=== PATIENT | male | born 1960 | race African-American/Black ===

== ENCOUNTER 2019-12-20 10:42 | Inpatient (IN) | payer OTHER ==
[~2019-12-20] VITALS: Ht 180.3 cm; Wt 111.1 kg
[2019-12-20] MEDS ORDERED: ENOXAPARIN 100MG/ML SYR SUBCUT ONE (12:45)
[2019-12-20 13:47] LABS: EOSINOPHILS % 3.6 % (0.0-5.0); HEMATOCRIT. 38.8 % (42.0-52.0); HEMOGLOBIN. 12.4 g/dL (14.0-18.0); LYMPHOCYTES % 25.4 % (20.0-50.0); MEAN CORPUSCULAR HEMOGLOBIN 23.7 pg (28.0-32.0); MEAN CORPUSCULAR VOLUME 74.1 fL (80.0-94.0); MEAN PLATELET VOLUME 8.9 fl (7.4-10.4); MONOCYTES % 6.2 % (2.0-8.0); NEUTROPHILS % 63.8 % (40.0-76.0); PLATELET 157 x1000/uL (130-400); RED BLOOD CELL COUNT 5.23 mill/uL (4.7-6.1); RED CELL DISTRIBUTION WIDTH 18.5 % (11.6-14.6)
[2019-12-20 13:50] LABS: CHLORIDE 110 mEq/L (98-107)
[2019-12-20 14:08] LABS: PROTHROMBIN TIME 11.2 sec (9.6-11.0)
[2019-12-20] MEDS ORDERED: ONDANSETRON HCL 4MG/2ML INJ IV PRN (18:30)
[2019-12-20] MEDS ORDERED: LORAZEPAM 2MG/ML CPJ IV PRN (18:30)
[2019-12-20] MEDS ORDERED: CLONIDINE 0.1MG TABLET PO PRN (18:30)
[2019-12-20] MEDS ORDERED: MORPHINE SULFATE 2 MG/ML CPJ (NOT FOR IM USE) IV PRN (18:30)
[2019-12-20] MEDS ORDERED: DIPHENHYDRAMINE 50MG/ML VIAL IV PRN (18:30)
[2019-12-20] MEDS ORDERED: HYDRALAZINE 20MG/ML VIAL IV PRN (18:30)
[2019-12-20] MEDS ORDERED: NA PHOS,M-B/NA PHOS,DI-BA ENEMA 118ML PR PRN (18:30)
[2019-12-20] MEDS ORDERED: HYDROCODONE/ACETAMINOPHEN 10/325MG TABLET PO PRN (18:30)
[2019-12-20] MEDS ORDERED: IPRATROPIUM/ALBUTEROL 0.5-3(2.5)MG/3ML NEB NEB PRN (18:30)
[2019-12-20] MEDS ORDERED: GUAIFENESIN 200MG/10ML SUGAR FREE UDC PO PRN (18:30)
[2019-12-20] MEDS ORDERED: DOCUSATE SODIUM 100MG CAPSULE PO PRN (18:30)
[2019-12-20] MEDS ORDERED: ACETAMINOPHEN 325MG TABLET PO PRN (18:30)
[2019-12-20] MEDS ORDERED: MAGNESIUM/ALUMINUM HYDROXIDE/SIMETHICONE 30ML UDC PO PRN (18:30)
[2019-12-20] MEDS ORDERED: DEXTROSE 50% WATER 50ML SYRINGE IV PRN (18:30)
[2019-12-20] MEDS ORDERED: BLOOD SUGAR DIAGNOSTIC STRIP TEST NR (21:15)
[2019-12-21 05:54] LABS: BASOPHILS % 1.3 % (0.0-2.0); EOSINOPHILS % 4.5 % (0.0-5.0); HEMATOCRIT. 37.2 % (42.0-52.0); LYMPHOCYTES % 24.1 % (20.0-50.0); MEAN CORPUSCULAR HEMOGLOBIN 23.8 pg (28.0-32.0); MEAN CORPUSCULAR VOLUME 73.9 fL (80.0-94.0); MEAN PLATELET VOLUME 8.7 fl (7.4-10.4); NEUTROPHILS % 62.1 % (40.0-76.0); PLATELET 159 x1000/uL (130-400); RED BLOOD CELL COUNT 5.03 mill/uL (4.7-6.1); RED CELL DISTRIBUTION WIDTH 18.5 % (11.6-14.6)
[2019-12-21] MEDS ORDERED: ENOXAPARIN 120MG/0.8ML SYR SUBCUT NR (06:00)
[2019-12-21 06:02] LABS: CHLORIDE 108 mEq/L (98-107)
[2019-12-21] MEDS ORDERED: HYDRALAZINE 10 MG in SODIUM CHLORIDE 0.9% 49.5 ML IV PRN (09:00)
[2019-12-21 09:20] VITALS: BP 146/86
[2019-12-21 09:25] VITALS: BP 159/91
[2019-12-21 12:00] VITALS: BP 159/86
[2019-12-21] MEDS: BLOOD SUGAR DIAGNOSTIC STRIP TEST SCH ×3 (12:17→21:39)
[2019-12-21] MEDS: INSULIN LISPRO 100 UNITS/ML SUBCUT SCH ×3 (12:30→21:50)
[2019-12-21] MEDS: SODIUM CHLORIDE 0.9% INJ 3ML FLUSH IVF SCH ×2 (14:00→21:48)
[2019-12-21 16:00] VITALS: BP 151/83
[2019-12-21] MEDS: ENOXAPARIN 120MG/0.8ML SYR SUBCUT SCH (17:46)
[2019-12-21 20:00] VITALS: BP 164/85
[2019-12-21] MEDS: AMLODIPINE 5MG TABLET PO SCH (21:38)
[2019-12-22 00:34] VITALS: BP 155/78
[2019-12-22 04:00] VITALS: BP 154/97
[2019-12-22] MEDS: SODIUM CHLORIDE 0.9% INJ 3ML FLUSH IVF SCH (05:09)
[2019-12-22] MEDS: ENOXAPARIN 120MG/0.8ML SYR SUBCUT SCH (05:09)
[2019-12-22] MEDS: INSULIN LISPRO 100 UNITS/ML SUBCUT SCH (06:14)
[2019-12-22] MEDS: BLOOD SUGAR DIAGNOSTIC STRIP TEST SCH (06:14)
[2019-12-22 06:54] LABS: BASOPHILS % 1.1 % (0.0-2.0); EOSINOPHILS % 4.4 % (0.0-5.0); HEMATOCRIT. 37.3 % (42.0-52.0); LYMPHOCYTES % 22.7 % (20.0-50.0); MEAN CORPUSCULAR HEMOGLOBIN 23.4 pg (28.0-32.0); MEAN PLATELET VOLUME 8.9 fl (7.4-10.4); MONOCYTES % 8.8 % (2.0-8.0); PLATELET 170 x1000/uL (130-400); RED BLOOD CELL COUNT 5.12 mill/uL (4.7-6.1); RED CELL DISTRIBUTION WIDTH 18.6 % (11.6-14.6)
[2019-12-22 07:19] LABS: CHLORIDE 108 mEq/L (98-107)
[2019-12-22 08:00] VITALS: BP 136/81
[2019-12-22] MEDS ORDERED: LOSARTAN POTASSIUM 25 MG TABLET PO SCH (09:00)
[2019-12-22] MEDS: AMLODIPINE 5MG TABLET PO SCH (09:46)
== END 2019-12-22 12:05 | disposition home or self-care (01) | DRG 197 ==
LOC: ER 10:42 → EDBEDREQ 14:31 → ENRESERV 12-21 07:28 → 6EST 12-21 08:45
PROVIDERS: ADMIT Internal Medicine; ATTEND Internal Medicine
DX: I82.431 Acute embolism and thrombosis of right popliteal vein (principal); I82.411 Acute embolism and thrombosis of right femoral vein; I11.0 Hypertensive heart disease with heart failure; I27.21 Secondary pulmonary arterial hypertension; I50.9 Heart failure, unspecified; E11.9 Type 2 diabetes mellitus without complications; E78.00 Pure hypercholesterolemia, unspecified; E78.5 Hyperlipidemia, unspecified; I34.0 Nonrheumatic mitral (valve) insufficiency; Z82.49 Family history of ischemic heart disease and other diseases of the circulatory system; Z87.891 Personal history of nicotine dependence; I69.354 Hemiplegia and hemiparesis following cerebral infarction affecting left non-dominant side; Z68.34 Body mass index [BMI] 34.0-34.9, adult
CPT/HCPCS: 36415; 71045; 80048; 80053; 82962; 83735; 85025; 93005; 93306; 93970; 99285; J1650; J1815

== ENCOUNTER 2020-12-19 15:17 | Inpatient (IN) | payer MEDICAID, OTHER ==
[~2020-12-19] VITALS: Ht 180.3 cm; Wt 117.9 kg
[2020-12-19 16:27] LABS: BASOPHILS % 1.2 % (0.0-2.0); EOSINOPHILS % 2.4 % (0.0-5.0); HEMATOCRIT. 39.5 % (42.0-52.0); HEMOGLOBIN. 12.4 g/dL (14.0-18.0); LYMPHOCYTES % 19.5 % (20.0-50.0); MEAN CORPUSCULAR HEMOGLOBIN 24.1 pg (28.0-32.0); MEAN CORPUSCULAR VOLUME 76.9 fL (80.0-94.0); MEAN PLATELET VOLUME 8.8 fl (7.4-10.4); NEUTROPHILS % 70.9 % (40.0-76.0); PLATELET 200 x1000/uL (130-400); RED BLOOD CELL COUNT 5.13 mill/uL (4.7-6.1); RED CELL DISTRIBUTION WIDTH 17.6 % (11.6-14.6)
[2020-12-19] MEDS ORDERED: RIVAROXABAN 15 MG TABLET PO SCH (17:00)
[2020-12-19 17:25] LABS: CHLORIDE 111 mEq/L (98-107)
[2020-12-19] MEDS ORDERED: INSULIN LISPRO 100 UNITS/ML SUBCUT ONE (18:00)
[2020-12-19] MEDS ORDERED: CALCIUM GLUCONATE 100MG/ML 10ML VIAL IV ONE (18:00)
[2020-12-19] MEDS ORDERED: FUROSEMIDE 40MG/4ML VIAL IVP ONE (18:00)
[2020-12-19] MEDS ORDERED: DEXTROSE 50% WATER 50ML SYRINGE IV ONE (18:00)
[2020-12-19 21:00] VITALS: BP 121/90
[2020-12-19] MEDS ORDERED: SACUBITRIL/VALSARTAN 24/26 TAB PO SCH (21:00)
[2020-12-19 21:03] VITALS: BP 121/90
[2020-12-19] MEDS: CARVEDILOL 3.125 MG TABLET PO SCH (21:50)
[2020-12-20] VITALS: BP 139/91
[2020-12-20] MEDS: SACUBITRIL/VALSARTAN 24/26 TAB PO SCH ×3 (00:10→20:26)
[2020-12-20] MEDS ORDERED: LORAZEPAM 0.5MG TABLET PO PRN (00:30)
[2020-12-20] MEDS ORDERED: CLONIDINE 0.1MG TABLET PO PRN (00:30)
[2020-12-20 04:00] VITALS: BP 143/100
[2020-12-20] MEDS ORDERED: HEPARIN 5000 UNITS/ML VIAL SUBCUT SCH (06:00)
[2020-12-20 07:21] LABS: BASOPHILS % 0.6 % (0.0-2.0); EOSINOPHILS % 0.4 % (0.0-5.0); HEMATOCRIT. 34.3 % (42.0-52.0); LYMPHOCYTES % 9.3 % (20.0-50.0); MEAN CORPUSCULAR HEMOGLOBIN 24.4 pg (28.0-32.0); MEAN CORPUSCULAR VOLUME 75.9 fL (80.0-94.0); MEAN PLATELET VOLUME 8.9 fl (7.4-10.4); MONOCYTES % 5.8 % (2.0-8.0); NEUTROPHILS % 83.9 % (40.0-76.0); PLATELET 182 x1000/uL (130-400); RED BLOOD CELL COUNT 4.52 mill/uL (4.7-6.1); RED CELL DISTRIBUTION WIDTH 17.3 % (11.6-14.6)
[2020-12-20 07:28] LABS: *AMPHETAMINES SCREEN URINE NEGATIVE (NEGATIVE); *BARBITURATES SCREEN URINE NEGATIVE (NEGATIVE); *BENZODIAZEPINES SCREEN URINE NEGATIVE (NEGATIVE); *COCAINE SCREEN URINE NEGATIVE (NEGATIVE)
[2020-12-20 07:29] LABS: CANNABINOID URINE SCREEN NEGATIVE (NEGATIVE); METHADONE URINE SCREEN NEGATIVE (NEGATIVE); OPIATES URINE SCREEN NEGATIVE (NEGATIVE); PHENCYCLIDINE URINE SCREEN NEGATIVE (NEGATIVE)
[2020-12-20 08:00] VITALS: BP 142/88
[2020-12-20 08:33] LABS: CHLORIDE 106 mEq/L (98-107)
[2020-12-20 08:48] LABS: CREATINE KINASE 142 IU/L (39-308)
[2020-12-20 08:52] LABS: CREATINE KINASE MB FRACTION 1.3 ng/mL (0.5-3.6)
[2020-12-20] MEDS ORDERED: FUROSEMIDE 40MG/4ML VIAL IVP SCH (09:00)
[2020-12-20] MEDS: CARVEDILOL 3.125 MG TABLET PO SCH (09:26)
[2020-12-20 12:00] VITALS: BP 143/92
[2020-12-20] MEDS: FUROSEMIDE 40MG/4ML VIAL IVP SCH ×2 (13:18→16:25)
[2020-12-20 16:00] VITALS: BP 139/100
[2020-12-20 16:10] LABS: CREATINE KINASE MB FRACTION 1.5 ng/mL (0.5-3.6)
[2020-12-20] MEDS: RIVAROXABAN 20 MG TABLET PO SCH (16:25)
[2020-12-20] MEDS ORDERED: RIVAROXABAN 15 MG TABLET PO SCH (17:00)
[2020-12-20 20:00] VITALS: BP 132/85
[2020-12-20] MEDS: CARVEDILOL 6.25 MG TABLET PO SCH (20:26)
[2020-12-21] VITALS: BP 109/82
[2020-12-21 04:00] VITALS: BP 107/79
[2020-12-21 07:16] LABS: BASOPHILS % 0.9 % (0.0-2.0); EOSINOPHILS % 2.7 % (0.0-5.0); HEMATOCRIT. 34.7 % (42.0-52.0); HEMOGLOBIN. 11.3 g/dL (14.0-18.0); LYMPHOCYTES % 14.9 % (20.0-50.0); MEAN CORPUSCULAR HEMOGLOBIN 24.5 pg (28.0-32.0); MEAN CORPUSCULAR VOLUME 75.3 fL (80.0-94.0); MONOCYTES % 10.2 % (2.0-8.0); NEUTROPHILS % 71.3 % (40.0-76.0); PLATELET 176 x1000/uL (130-400); RED CELL DISTRIBUTION WIDTH 17.7 % (11.6-14.6)
[2020-12-21 07:24] LABS: CHLORIDE 107 mEq/L (98-107)
[2020-12-21 08:00] VITALS: BP 134/91
[2020-12-21] MEDS: FUROSEMIDE 40MG/4ML VIAL IVP SCH ×3 (09:10→17:11)
[2020-12-21] MEDS: SACUBITRIL/VALSARTAN 24/26 TAB PO SCH ×2 (09:11→20:28)
[2020-12-21] MEDS: CARVEDILOL 6.25 MG TABLET PO SCH ×2 (09:11→20:28)
[2020-12-21 12:00] VITALS: BP 138/80
[2020-12-21] MEDS: DOCUSATE SODIUM SUGAR FREE 100MG/10ML UDC NG SCH (12:43)
[2020-12-21] MEDS: DILTIAZEM HCL 30MG TABLET PO SCH ×2 (12:44→17:13)
[2020-12-21 16:00] VITALS: BP 111/73
[2020-12-21] MEDS: RIVAROXABAN 20 MG TABLET PO SCH (17:12)
[2020-12-21 20:12] VITALS: BP 101/63
[2020-12-22 00:17] VITALS: BP 100/67
[2020-12-22 04:31] VITALS: BP 110/72
[2020-12-22 06:04] VITALS: BP 138/91
[2020-12-22] MEDS: DILTIAZEM HCL 30MG TABLET PO SCH ×2 (06:04)
[2020-12-22 08:00] VITALS: BP 111/85
[2020-12-22 08:08] LABS: EOSINOPHILS % 4.3 % (0.0-5.0); HEMATOCRIT. 36.7 % (42.0-52.0); HEMOGLOBIN. 11.8 g/dL (14.0-18.0); LYMPHOCYTES % 20.6 % (20.0-50.0); MEAN CORPUSCULAR HEMOGLOBIN 24.4 pg (28.0-32.0); MEAN CORPUSCULAR VOLUME 76.1 fL (80.0-94.0); MEAN PLATELET VOLUME 8.7 fl (7.4-10.4); MONOCYTES % 12.4 % (2.0-8.0); NEUTROPHILS % 61.7 % (40.0-76.0); PLATELET 182 x1000/uL (130-400); RED BLOOD CELL COUNT 4.82 mill/uL (4.7-6.1); RED CELL DISTRIBUTION WIDTH 17.6 % (11.6-14.6)
[2020-12-22] MEDS: DOCUSATE SODIUM SUGAR FREE 100MG/10ML UDC NG SCH (08:16)
[2020-12-22] MEDS: CARVEDILOL 6.25 MG TABLET PO SCH (08:16)
[2020-12-22] MEDS: FUROSEMIDE 40MG/4ML VIAL IVP SCH (08:16)
[2020-12-22] MEDS: SACUBITRIL/VALSARTAN 24/26 TAB PO SCH (08:16)
[2020-12-22 08:28] LABS: CHLORIDE 105 mEq/L (98-107)
[2020-12-22] MEDS ORDERED: RIVA20TA PO (10:47)
[2020-12-22] MEDS ORDERED: DILT240C91 MT (10:47)
[2020-12-22] MEDS ORDERED: FURO40TA5 MT (10:47)
[2020-12-22] MEDS ORDERED: COR6 PO (10:47)
[2020-12-22 11:14] VITALS: BP 128/88
[2020-12-22] MEDS ORDERED: DILTIAZEM HCL 60MG TABLET PO SCH (12:00)
== END 2020-12-22 16:25 | disposition home or self-care (01) | DRG 194 ==
LOC: ER 15:17 → 6WST 19:22 → ENRESERV 20:27
PROVIDERS: ADMIT Internal Medicine; ATTEND Internal Medicine
DX: I11.0 Hypertensive heart disease with heart failure (principal); I50.23 Acute on chronic systolic (congestive) heart failure; I42.9 Cardiomyopathy, unspecified; E11.9 Type 2 diabetes mellitus without complications; E87.5 Hyperkalemia; I48.92 Unspecified atrial flutter; E78.00 Pure hypercholesterolemia, unspecified; E78.5 Hyperlipidemia, unspecified; I82.531 Chronic embolism and thrombosis of right popliteal vein; I82.511 Chronic embolism and thrombosis of right femoral vein; G47.33 Obstructive sleep apnea (adult) (pediatric); I69.398 Other sequelae of cerebral infarction; Z91.19 Patient's noncompliance with other medical treatment and regimen; Z82.49 Family history of ischemic heart disease and other diseases of the circulatory system
CPT/HCPCS: 36415; 71045; 80048; 80053; 80061; 80305; 82550; 82553; 83735; 83880; 84443; 84484; 85025; 93005; 93306; 96374; 99285; J0610; J1815; J1940

== ENCOUNTER 2022-11-04 09:43 | Inpatient (IN) | payer MEDICAID, OTHER ==
[~2022-11-04] VITALS: Ht 180.3 cm; Wt 120.2 kg
[~2022-11-04 09:43] MED LIST: COR6 PO; DILT240C91 MT; FURO40TA5 MT; RIVA20TA PO
[2022-11-04] MEDS ORDERED: FUROSEMIDE 40MG/4ML VIAL IVP ONE (11:30)
[2022-11-04] MEDS ORDERED: ENALAPRIL 2.5MG/2ML VIAL 2ML IV ONE (11:30)
[2022-11-04] MEDS ORDERED: ENALAPRIL 1.25MG/ML VIAL 1ML IV NR (12:00)
[2022-11-04 12:19] LABS: CHLORIDE 107 mEq/L (98-107)
[2022-11-04 12:36] LABS: BASOPHILS % 1.1 % (0.0-2.0); EOSINOPHILS % 2.7 % (0.0-5.0); HEMATOCRIT. 37.8 % (42.0-52.0); LYMPHOCYTES % 18.2 % (20.0-50.0); MEAN CORPUSCULAR HEMOGLOBIN 23.5 pg (28.0-32.0); MEAN CORPUSCULAR VOLUME 73.9 fL (80.0-94.0); MEAN PLATELET VOLUME 8.5 fl (7.4-10.4); MONOCYTES % 5.4 % (2.0-8.0); NEUTROPHILS % 72.6 % (40.0-76.0); PLATELET 229 x1000/uL (130-400); RED BLOOD CELL COUNT 5.11 mill/uL (4.7-6.1); RED CELL DISTRIBUTION WIDTH 17.7 % (11.6-14.6)
[2022-11-04] MEDS ORDERED: NON FORMULARY PATIENT HOME MED XX SCH (13:15)
[2022-11-04] MEDS: FUROSEMIDE 40MG/4ML VIAL IVP SCH ×2 (13:38→16:40)
[2022-11-04 13:58] LABS: INR 1.1; PROTHROMBIN TIME 11.9 sec (9.6-11.0)
[2022-11-04] MEDS: AMIODARONE HCL 200 MG TABLET PO SCH ×2 (14:17→21:26)
[2022-11-04] MEDS ORDERED: ONDANSETRON HCL 4MG/2ML INJ IV PRN (16:30)
[2022-11-04] MEDS ORDERED: DEXTROSE 50% WATER 50ML SYRINGE IV PRN (16:30)
[2022-11-04] MEDS ORDERED: ACETAMINOPHEN 325MG TABLET PO PRN (16:30)
[2022-11-04] MEDS: ENOXAPARIN 120MG/0.8ML SYR SUBCUT SCH (16:34)
[2022-11-04] MEDS: SACUBITRIL/VALSARTAN 49MG/51MG TABLET PO SCH (16:34)
[2022-11-04] MEDS: BLOOD SUGAR DIAGNOSTIC STRIP TEST SCH ×2 (16:40→21:16)
[2022-11-04] MEDS: DILTIAZEM HCL 30MG TABLET PO SCH ×2 (18:00→23:55)
[2022-11-04] MEDS: INSULIN LISPRO 100 UNITS/ML SUBCUT SCH ×2 (18:17→21:00)
[2022-11-04 20:00] VITALS: BP 97/70
[2022-11-04] MEDS: CARVEDILOL 3.125 MG TABLET PO SCH (21:26)
[2022-11-04 21:41] VITALS: BP 97/70
[2022-11-05] VITALS: BP 102/63
[2022-11-05 04:00] VITALS: BP 99/70
[2022-11-05] MEDS: FUROSEMIDE 40MG/4ML VIAL IVP SCH ×2 (05:28→17:37)
[2022-11-05] MEDS: ENOXAPARIN 120MG/0.8ML SYR SUBCUT SCH ×2 (05:28→17:37)
[2022-11-05] MEDS: DILTIAZEM HCL 30MG TABLET PO SCH ×4 (05:30→23:39)
[2022-11-05] MEDS: BLOOD SUGAR DIAGNOSTIC STRIP TEST SCH ×4 (05:31→21:00)
[2022-11-05 08:00] VITALS: BP 109/79
[2022-11-05] MEDS: CARVEDILOL 3.125 MG TABLET PO SCH ×2 (08:09→20:40)
[2022-11-05] MEDS: AMIODARONE HCL 200 MG TABLET PO SCH ×2 (08:10→20:40)
[2022-11-05] MEDS: SACUBITRIL/VALSARTAN 49MG/51MG TABLET PO SCH ×2 (08:10→17:37)
[2022-11-05] MEDS: INSULIN LISPRO 100 UNITS/ML SUBCUT SCH ×4 (08:11→22:02)
[2022-11-05 11:06] LABS: CHLORIDE 106 mEq/L (98-107)
[2022-11-05 12:00] VITALS: BP 130/83
[2022-11-05 16:00] VITALS: BP 112/70
[2022-11-05] MEDS ORDERED: METOLAZONE 5MG TABLET PO NR (18:49)
[2022-11-05] MEDS ORDERED: FUROSEMIDE 40MG/4ML VIAL IVP NR (19:30)
[2022-11-05 20:00] VITALS: BP 122/73
[2022-11-05] MEDS: ZOLPIDEM TARTRATE 5MG TABLET PO PRN (22:00)
[2022-11-06] VITALS: BP 112/74
[2022-11-06 04:00] VITALS: BP 100/66
[2022-11-06] MEDS: DILTIAZEM HCL 30MG TABLET PO SCH ×3 (05:54→17:33)
[2022-11-06] MEDS: FUROSEMIDE 40MG/4ML VIAL IVP SCH ×2 (05:54→17:33)
[2022-11-06] MEDS: INSULIN LISPRO 100 UNITS/ML SUBCUT SCH ×4 (05:55→21:59)
[2022-11-06] MEDS: BLOOD SUGAR DIAGNOSTIC STRIP TEST SCH ×4 (05:55→21:00)
[2022-11-06 07:22] LABS: BASOPHILS % 1.2 % (0.0-2.0); EOSINOPHILS % 3.8 % (0.0-5.0); HEMATOCRIT. 38.7 % (42.0-52.0); HEMOGLOBIN. 12.4 g/dL (14.0-18.0); LYMPHOCYTES % 15.8 % (20.0-50.0); MEAN CORPUSCULAR HEMOGLOBIN 23.6 pg (28.0-32.0); MEAN CORPUSCULAR VOLUME 73.9 fL (80.0-94.0); MEAN PLATELET VOLUME 8.9 fl (7.4-10.4); MONOCYTES % 6.1 % (2.0-8.0); NEUTROPHILS % 73.1 % (40.0-76.0); PLATELET 263 x1000/uL (130-400); RED BLOOD CELL COUNT 5.24 mill/uL (4.7-6.1); RED CELL DISTRIBUTION WIDTH 17.8 % (11.6-14.6)
[2022-11-06 08:00] VITALS: BP 182/167
[2022-11-06] MEDS: SACUBITRIL/VALSARTAN 49MG/51MG TABLET PO SCH ×2 (08:54→17:33)
[2022-11-06] MEDS: CARVEDILOL 3.125 MG TABLET PO SCH ×2 (08:54→21:00)
[2022-11-06] MEDS: AMIODARONE HCL 200 MG TABLET PO SCH ×2 (08:54→21:46)
[2022-11-06] MEDS ORDERED: IOHEXOL-350 100 ML BOTTLE ONE (10:39)
[2022-11-06 12:00] VITALS: BP 166/98
[2022-11-06 16:00] VITALS: BP 153/96
[2022-11-06] MEDS ORDERED: ENOXAPARIN 120MG/0.8ML SYR SUBCUT NR (17:19)
[2022-11-06] MEDS ORDERED: METOLAZONE 5MG TABLET PO NR (18:00)
[2022-11-06] MEDS ORDERED: FUROSEMIDE 40MG/4ML VIAL IVP NR (18:30)
[2022-11-06 20:00] VITALS: BP 109/73
[2022-11-06] MEDS: ZOLPIDEM TARTRATE 5MG TABLET PO PRN (21:45)
[2022-11-06] MEDS: ISOSORB DINIT/HYDRALAZINE HCL 20/37.5MG TABLET PO SCH (22:00)
[2022-11-07] VITALS (59 sets, daily range): BP systolic 66–200; BP diastolic 32–145
[2022-11-07] MEDS: DILTIAZEM HCL 30MG TABLET PO SCH ×4 (00:11→23:29)
[2022-11-07] MEDS: INSULIN LISPRO 100 UNITS/ML SUBCUT SCH ×3 (06:00→20:32)
[2022-11-07] MEDS: BLOOD SUGAR DIAGNOSTIC STRIP TEST SCH ×3 (06:17→20:32)
[2022-11-07] MEDS: ISOSORB DINIT/HYDRALAZINE HCL 20/37.5MG TABLET PO SCH ×3 (06:17→21:22)
[2022-11-07] MEDS ORDERED: METOLAZONE 2.5MG TABLET PO NR (06:45)
[2022-11-07] MEDS: FUROSEMIDE 40MG/4ML VIAL IVP SCH ×2 (07:12→18:10)
[2022-11-07] MEDS: SACUBITRIL/VALSARTAN 49MG/51MG TABLET PO SCH ×2 (08:26→18:56)
[2022-11-07] MEDS: CARVEDILOL 3.125 MG TABLET PO SCH ×2 (08:26→21:00)
[2022-11-07] MEDS: AMIODARONE HCL 200 MG TABLET PO SCH ×2 (08:26→21:00)
[2022-11-07] MEDS ORDERED: GENTAMICIN SULF 40MG/ML 2ML VIAL ONE (11:51)
[2022-11-07] MEDS ORDERED: IODIXANOL 320MG/ML 100 ML BOTTLE IV ONE (11:51)
[2022-11-07] MEDS ORDERED: GENTAMICIN/NS IRRIGATION 500 ML IR SCH (12:15)
[2022-11-07] MEDS ORDERED: ETOMIDATE 2MG/ML 10ML VIAL IV ONE (12:32)
[2022-11-07] MEDS ORDERED: PROPOFOL 200MG/20ML VIAL IV ONE (12:32)
[2022-11-07] MEDS ORDERED: LIDOCAINE HCL 1% 10 MG/ML 10ML VIAL ONE (12:32)
[2022-11-07] MEDS ORDERED: MIDAZOLAM HCL 2 MG/2 ML VIAL ONE (12:33)
[2022-11-07] MEDS ORDERED: FENTANYL CITRATE/PF 50MCG/ML 2ML VIAL ONE (12:33)
[2022-11-07] MEDS ORDERED: ROCURONIUM BROMIDE 10MG/ML VIAL 5ML IV ONE (13:30)
[2022-11-07] MEDS ORDERED: MILRINONE 20MG-DEXT 5% PREMIX 100 ML IV ONE (14:51)
[2022-11-07] MEDS ORDERED: HYDROCODONE/ACETAMINOPHEN 5/325MG TABLET PO PRN (15:15)
[2022-11-07] MEDS ORDERED: FUROSEMIDE 100MG/10ML VIAL IVP NR (15:30)
[2022-11-07] MEDS ORDERED: NALOXONE HCL 0.4MG/ML VIAL IV PRN (15:30)
[2022-11-07] MEDS ORDERED: DILTIAZEM HCL 5MG/ML 5ML VIAL IV PRN (15:45)
[2022-11-07] MEDS ORDERED: NICARDIPINE 100 MG in SODIUM CHLORIDE 0.9% 60 ML IV PRN (15:45)
[2022-11-07] MEDS ORDERED: IPRATROPIUM BROMIDE (0.02%) 0.5MG/2.5ML NEB HHN PRN (15:45)
[2022-11-07] MEDS ORDERED: PROPOFOL 10MG/ML 100ML 100 ML IV PRN (15:45)
[2022-11-07] MEDS ORDERED: DEXMEDETOMIDINE 400 MCG/100 ML 100 ML IV PRN ×2 (15:45→16:00)
[2022-11-07] MEDS ORDERED: AMIODARONE HCL 150 MG in DEXT 5% WATER 100 ML IV NR (16:00)
[2022-11-07 16:21] LABS: BG BASE EXCESS -5.8 mmol/L (-2.0-2.0); BG CARBOXYHEMOGLOBIN 1.2 % (0.5-1.5); BG DEOXYHEMOGLOBIN 10.2 % (0.0-5.0); BG FRACTION INSPIRED OXYGEN 100; BG HCO3 ACT 22.3 mmol/L (22.0-26.0); BG METHEMOGLOBIN 0.4 % (0.0-1.5); BG OXYGEN SATURATION 89.6 % (92.0-98.5); BG OXYHEMOGLOBIN 88.2 % (94.0-97.0); BG PCO2 54.2 mmHg (35.0-45.0); BG PH 7.232 (7.350-7.450); BG PO2 69.3 mmHg (75.0-100.0); BG SAMPLE SITE LEFT RADIAL; BG TOTAL HEMOGLOBIN 14.1 g/dL (12.0-18.0); BG VENT MODE VENT - AC
[2022-11-07] MEDS: IPRATROPIUM BROMIDE (0.02%) 0.5MG/2.5ML NEB HHN SCH ×2 (16:21→21:11)
[2022-11-07] MEDS: MILRINONE 20MG-DEXT 5% PREMIX 100 ML IV NR ×2 (17:33→21:22)
[2022-11-07] MEDS: AMIODARONE HCL 900 MG in DEXT 5% WATER 482 ML IV PRN (17:37)
[2022-11-07 17:54] LABS: BASOPHILS % 0.6 % (0.0-2.0); EOSINOPHILS % 1.7 % (0.0-5.0); HEMOGLOBIN. 12.7 g/dL (14.0-18.0); LYMPHOCYTES % 7.1 % (20.0-50.0); MEAN CORPUSCULAR HEMOGLOBIN 23.1 pg (28.0-32.0); MEAN CORPUSCULAR VOLUME 74.4 fL (80.0-94.0); MEAN PLATELET VOLUME 8.6 fl (7.4-10.4); MONOCYTES % 5.5 % (2.0-8.0); NEUTROPHILS % 85.1 % (40.0-76.0); PLATELET 265 x1000/uL (130-400); RED BLOOD CELL COUNT 5.51 mill/uL (4.7-6.1)
[2022-11-07] MEDS: FENTANYL CITRATE/PF 2,500 MCG in SODIUM CHLORIDE 0.9% 200 ML IV PRN (17:59)
[2022-11-07] MEDS ORDERED: IPRATROPIUM/ALBUTEROL 0.5-3(2.5)MG/3ML NEB HHN SCH (18:00)
[2022-11-07] MEDS ORDERED: CALCIUM CHLORIDE 1GM/10ML SYR IV NR (20:00)
[2022-11-07] MEDS: NOREPINEPHRINE 32 MG in DEXT 5% WATER 218 ML IV PRN (20:31)
[2022-11-08] VITALS (99 sets, daily range): BP systolic 67–175; BP diastolic 35–89
[2022-11-08] MEDS: IPRATROPIUM BROMIDE (0.02%) 0.5MG/2.5ML NEB HHN SCH ×3 (02:40→20:30)
[2022-11-08] MEDS: DILTIAZEM HCL 30MG TABLET PO SCH ×2 (05:02→12:00)
[2022-11-08] MEDS: ISOSORB DINIT/HYDRALAZINE HCL 20/37.5MG TABLET PO SCH (05:02)
[2022-11-08] MEDS: MILRINONE 20MG-DEXT 5% PREMIX 100 ML IV NR (05:03)
[2022-11-08 05:23] LABS: HEMATOCRIT. 36.8 % (42.0-52.0); HEMOGLOBIN. 11.8 g/dL (14.0-18.0); MEAN CORPUSCULAR HEMOGLOBIN 23.6 pg (28.0-32.0); MEAN CORPUSCULAR VOLUME 73.6 fL (80.0-94.0); MEAN PLATELET VOLUME 8.3 fl (7.4-10.4); PLATELET 270 x1000/uL (130-400); RED CELL DISTRIBUTION WIDTH 17.4 % (11.6-14.6)
[2022-11-08] MEDS: FUROSEMIDE 40MG/4ML VIAL IVP SCH ×2 (06:29→17:02)
[2022-11-08] MEDS: BLOOD SUGAR DIAGNOSTIC STRIP TEST SCH ×4 (06:51→20:57)
[2022-11-08] MEDS: INSULIN LISPRO 100 UNITS/ML SUBCUT SCH ×4 (07:01→20:56)
[2022-11-08] MEDS: CARVEDILOL 3.125 MG TABLET PO SCH (09:00)
[2022-11-08] MEDS: AMIODARONE HCL 200 MG TABLET PO SCH ×2 (09:01→20:55)
[2022-11-08] MEDS: SACUBITRIL/VALSARTAN 49MG/51MG TABLET PO SCH (09:26)
[2022-11-08 09:32] LABS: BG CARBOXYHEMOGLOBIN 1.4 % (0.5-1.5); BG DEOXYHEMOGLOBIN 2.3 % (0.0-5.0); BG HCO3 ACT 20.6 mmol/L (22.0-26.0); BG METHEMOGLOBIN 0.4 % (0.0-1.5); BG OXYGEN SATURATION 97.7 % (92.0-98.5); BG OXYHEMOGLOBIN 95.9 % (94.0-97.0); BG PCO2 32.6 mmHg (35.0-45.0); BG PH 7.419 (7.350-7.450); BG PO2 98.2 mmHg (75.0-100.0); BG SAMPLE SITE RIGHT RADIAL; BG TOTAL HEMOGLOBIN 12.7 g/dL (12.0-18.0); BG VENT MODE VENT - AC
[2022-11-08] MEDS: MILRINONE 20MG-DEXT 5% PREMIX 100 ML IV SCH ×2 (11:33→20:55)
[2022-11-08] MEDS ORDERED: MIDAZOLAM HCL 100 MG in SODIUM CHLORIDE 0.9% 80 ML IV PRN (12:30)
[2022-11-08 13:00] LABS: PLATELET ESTIMATE NORMAL
[2022-11-08] MEDS: MIDAZOLAM HCL 100 MG in SODIUM CHLORIDE 0.9% 80 ML IV PRN (13:02)
[2022-11-08] MEDS ORDERED: METOLAZONE 10MG TABLET PO NR (16:30)
[2022-11-08] MEDS ORDERED: MILRINONE 20MG-DEXT 5% PREMIX 100 ML IV SCH (22:01)
[2022-11-08] MEDS: AMIODARONE HCL 900 MG in DEXT 5% WATER 482 ML IV PRN (22:43)
[2022-11-09] VITALS (108 sets, daily range): BP systolic 59–163; BP diastolic 31–98
[2022-11-09] MEDS: IPRATROPIUM BROMIDE (0.02%) 0.5MG/2.5ML NEB HHN SCH ×4 (02:37→20:06)
[2022-11-09] MEDS: MIDAZOLAM HCL 100 MG in SODIUM CHLORIDE 0.9% 80 ML IV PRN ×2 (05:08→20:31)
[2022-11-09 06:32] LABS: HEMATOCRIT. 35.2 % (42.0-52.0); HEMOGLOBIN. 11.2 g/dL (14.0-18.0); MEAN CORPUSCULAR HEMOGLOBIN 23.4 pg (28.0-32.0); MEAN CORPUSCULAR VOLUME 73.5 fL (80.0-94.0); MEAN PLATELET VOLUME 8.4 fl (7.4-10.4); PLATELET 225 x1000/uL (130-400); RED CELL DISTRIBUTION WIDTH 17.4 % (11.6-14.6)
[2022-11-09] MEDS: FENTANYL CITRATE/PF 2,500 MCG in SODIUM CHLORIDE 0.9% 200 ML IV PRN (07:05)
[2022-11-09] MEDS: BLOOD SUGAR DIAGNOSTIC STRIP TEST SCH ×4 (07:06→20:37)
[2022-11-09] MEDS: AMIODARONE HCL 200 MG TABLET PO SCH ×2 (08:16→20:50)
[2022-11-09] MEDS: FUROSEMIDE 40MG/4ML VIAL IVP SCH ×2 (08:16→16:35)
[2022-11-09] MEDS: INSULIN LISPRO 100 UNITS/ML SUBCUT SCH ×3 (08:30→16:34)
[2022-11-09 09:59] LABS: BG BASE EXCESS -5.8 mmol/L (-2.0-2.0); BG CARBOXYHEMOGLOBIN 1.3 % (0.5-1.5); BG DEOXYHEMOGLOBIN 6.1 % (0.0-5.0); BG FRACTION INSPIRED OXYGEN 40; BG HCO3 ACT 19.2 mmol/L (22.0-26.0); BG METHEMOGLOBIN 0.3 % (0.0-1.5); BG OXYGEN SATURATION 93.8 % (92.0-98.5); BG OXYHEMOGLOBIN 92.3 % (94.0-97.0); BG PCO2 36.2 mmHg (35.0-45.0); BG PH 7.342 (7.350-7.450); BG PO2 69.2 mmHg (75.0-100.0); BG SAMPLE SITE RIGHT RADIAL; BG TOTAL HEMOGLOBIN 13.7 g/dL (12.0-18.0); BG VENT MODE VENT - AC
[2022-11-09 11:16] LABS: CLARITY URINE CLEAR (CLEAR); COLOR URINE YELLOW (YELLOW); KETONES URINE NEGATIVE (NEGATIVE); LEUKOCYTE ESTERASE URINE TRACE (NEGATIVE); NITRITE URINE NEGATIVE (NEGATIVE); OCCULT BLOOD URINE 3+ (NEGATIVE); PROTEIN URINE TRACE (NEGATIVE); SPECIFIC GRAVITY URINE 1.012 (1.005-1.030)
[2022-11-09] MEDS ORDERED: HEPARIN 1000 UNITS/ML 10ML ONE (11:44)
[2022-11-09] MEDS ORDERED: LIDOCAINE HCL/PF 1% 10 MG/ML 5ML VIAL ONE (11:45)
[2022-11-09 12:15] LABS: CREATINE KINASE 239 IU/L (39-308)
[2022-11-09 12:28] LABS: HEPATITIS B SURFACE ANTIGEN NEGATIVE
[2022-11-09 13:43] LABS: PLATELET ESTIMATE NORMAL
[2022-11-09] MEDS: NOREPINEPHRINE 32 MG in DEXT 5% WATER 218 ML IV PRN (14:13)
[2022-11-10] VITALS (79 sets, daily range): BP systolic 89–167; BP diastolic 50–94
[2022-11-10] MEDS: INSULIN LISPRO 100 UNITS/ML SUBCUT SCH ×4 (00:22→18:30)
[2022-11-10] MEDS: IPRATROPIUM BROMIDE (0.02%) 0.5MG/2.5ML NEB HHN SCH ×4 (01:59→20:42)
[2022-11-10 05:43] LABS: BASOPHILS % 0.5 % (0.0-2.0); EOSINOPHILS % 1.4 % (0.0-5.0); HEMATOCRIT. 40.7 % (42.0-52.0); HEMOGLOBIN. 12.6 g/dL (14.0-18.0); LYMPHOCYTES % 8.3 % (20.0-50.0); MEAN CORPUSCULAR HEMOGLOBIN 23.4 pg (28.0-32.0); MEAN CORPUSCULAR VOLUME 75.1 fL (80.0-94.0); MEAN PLATELET VOLUME 8.8 fl (7.4-10.4); MONOCYTES % 11.5 % (2.0-8.0); NEUTROPHILS % 78.3 % (40.0-76.0); PLATELET 207 x1000/uL (130-400); RED BLOOD CELL COUNT 5.41 mill/uL (4.7-6.1); RED CELL DISTRIBUTION WIDTH 17.9 % (11.6-14.6)
[2022-11-10] MEDS: AMIODARONE HCL 900 MG in DEXT 5% WATER 482 ML IV PRN (05:44)
[2022-11-10] MEDS: BLOOD SUGAR DIAGNOSTIC STRIP TEST SCH ×4 (06:00→18:30)
[2022-11-10] MEDS: FUROSEMIDE 40MG/4ML VIAL IVP SCH ×2 (07:05→18:30)
[2022-11-10] MEDS: APIXABAN 5 MG TABLET PO SCH ×2 (09:58→18:30)
[2022-11-10] MEDS: AMIODARONE HCL 200 MG TABLET PO SCH ×2 (09:58→21:16)
[2022-11-10 10:21] LABS: BG BASE EXCESS -1.1 mmol/L (-2.0-2.0); BG CARBOXYHEMOGLOBIN 0.6 % (0.5-1.5); BG DEOXYHEMOGLOBIN 5.1 % (0.0-5.0); BG FRACTION INSPIRED OXYGEN 40; BG HCO3 ACT 23.3 mmol/L (22.0-26.0); BG METHEMOGLOBIN 0.3 % (0.0-1.5); BG OXYGEN SATURATION 94.9 % (92.0-98.5); BG PH 7.406 (7.350-7.450); BG PO2 72.4 mmHg (75.0-100.0); BG SAMPLE SITE RIGHT RADIAL; BG TOTAL HEMOGLOBIN 12.6 g/dL (12.0-18.0); BG VENT MODE VENT - AC
[2022-11-10] MEDS ORDERED: VANCOMYCIN 2,000 MG in DEXT 5% WATER 500 ML IV SCH (12:00)
[2022-11-10] MEDS ORDERED: CEFTRIAXONE 1,000 MG in DEXTROSE 5% WATER 50 ML IV SCH (13:00)
[2022-11-10] MEDS: PANTOPRAZOLE SODIUM 40 MG/VIAL IV SCH (13:59)
[2022-11-10] MEDS ORDERED: FENTANYL 2500MCG/250ML PMX 250 ML IV PRN (23:00)
[2022-11-11] VITALS (83 sets, daily range): BP systolic 75–161; BP diastolic 42–120
[2022-11-11] MEDS: INSULIN LISPRO 100 UNITS/ML SUBCUT SCH ×5 (00:09→18:16)
[2022-11-11] MEDS: IPRATROPIUM BROMIDE (0.02%) 0.5MG/2.5ML NEB HHN SCH ×4 (02:41→21:16)
[2022-11-11 05:36] LABS: HEMATOCRIT. 36.5 % (42.0-52.0); HEMOGLOBIN. 11.7 g/dL (14.0-18.0); MEAN CORPUSCULAR HEMOGLOBIN 23.5 pg (28.0-32.0); MEAN CORPUSCULAR VOLUME 73.6 fL (80.0-94.0); MEAN PLATELET VOLUME 8.3 fl (7.4-10.4); PLATELET 214 x1000/uL (130-400); RED BLOOD CELL COUNT 4.97 mill/uL (4.7-6.1); RED CELL DISTRIBUTION WIDTH 18.1 % (11.6-14.6)
[2022-11-11 05:59] LABS: T4 FREE 1.37 ng/dL (0.76-1.46)
[2022-11-11] MEDS: BLOOD SUGAR DIAGNOSTIC STRIP TEST SCH ×4 (06:00→17:59)
[2022-11-11 06:57] LABS: VITAMIN B12 SERUM 642 pg/mL (211-911)
[2022-11-11] MEDS: PANTOPRAZOLE SODIUM 40 MG/VIAL IV SCH (09:37)
[2022-11-11] MEDS: APIXABAN 5 MG TABLET PO SCH ×2 (09:37→17:59)
[2022-11-11] MEDS: FUROSEMIDE 40MG/4ML VIAL IVP SCH ×2 (09:37→17:58)
[2022-11-11] MEDS: AMIODARONE HCL 200 MG TABLET PO SCH ×2 (09:37→21:27)
[2022-11-11] MEDS: SACUBITRIL/VALSARTAN 49MG/51MG TABLET PO SCH ×2 (10:04→17:59)
[2022-11-11] MEDS: CARVEDILOL 3.125 MG TABLET PO SCH ×2 (10:04→21:27)
[2022-11-11 10:15] LABS: BG BASE EXCESS -1.7 mmol/L (-2.0-2.0); BG CARBOXYHEMOGLOBIN 1.1 % (0.5-1.5); BG DEOXYHEMOGLOBIN 6.1 % (0.0-5.0); BG FRACTION INSPIRED OXYGEN 40; BG HCO3 ACT 21.9 mmol/L (22.0-26.0); BG METHEMOGLOBIN 0.3 % (0.0-1.5); BG OXYGEN SATURATION 93.8 % (92.0-98.5); BG OXYHEMOGLOBIN 92.5 % (94.0-97.0); BG PCO2 33.6 mmHg (35.0-45.0); BG PH 7.431 (7.350-7.450); BG PO2 68.9 mmHg (75.0-100.0); BG SAMPLE SITE LEFT RADIAL; BG TOTAL HEMOGLOBIN 13.6 g/dL (12.0-18.0); BG VENT MODE VENT - CPAP
[2022-11-11 10:51] LABS: PLATELET ESTIMATE NORMAL
[2022-11-11 13:12] LABS: BG BASE EXCESS 0.2 mmol/L (-2.0-2.0); BG DEOXYHEMOGLOBIN 5.9 % (0.0-5.0); BG FRACTION INSPIRED OXYGEN 40; BG HCO3 ACT 24.1 mmol/L (22.0-26.0); BG METHEMOGLOBIN 0.4 % (0.0-1.5); BG OXYHEMOGLOBIN 92.7 % (94.0-97.0); BG PCO2 36.8 mmHg (35.0-45.0); BG PH 7.434 (7.350-7.450); BG PO2 66.6 mmHg (75.0-100.0); BG SAMPLE SITE LEFT RADIAL; BG TOTAL HEMOGLOBIN 13.9 g/dL (12.0-18.0); BG VENT MODE COOL AEROSOL
[2022-11-11] MEDS: DILTIAZEM HCL 30MG TABLET PO SCH ×2 (14:39→17:58)
[2022-11-11] MEDS: CEFEPIME 1,000 MG in DEXTROSE 5% WATER 50 ML IV SCH (14:39)
[2022-11-11] MEDS: ISOSORB DINIT/HYDRALAZINE HCL 20/37.5MG TABLET PO SCH ×2 (14:40→22:00)
[2022-11-12] VITALS (88 sets, daily range): BP systolic 103–176; BP diastolic 23–111
[2022-11-12] MEDS: DILTIAZEM HCL 30MG TABLET PO SCH ×4 (00:56→17:17)
[2022-11-12] MEDS: CEFEPIME 1,000 MG in DEXTROSE 5% WATER 50 ML IV SCH (00:56)
[2022-11-12] MEDS: INSULIN LISPRO 100 UNITS/ML SUBCUT SCH ×4 (00:58→17:24)
[2022-11-12] MEDS: LORAZEPAM 2MG/ML CPJ IV PRN ×2 (00:58→08:57)
[2022-11-12] MEDS: IPRATROPIUM BROMIDE (0.02%) 0.5MG/2.5ML NEB HHN SCH ×3 (02:54→14:16)
[2022-11-12] MEDS: BLOOD SUGAR DIAGNOSTIC STRIP TEST SCH ×4 (06:00→17:17)
[2022-11-12] MEDS: ISOSORB DINIT/HYDRALAZINE HCL 20/37.5MG TABLET PO SCH ×3 (06:00→22:00)
[2022-11-12 06:27] LABS: HEMATOCRIT. 38.8 % (42.0-52.0); HEMOGLOBIN. 12.6 g/dL (14.0-18.0); MEAN CORPUSCULAR HEMOGLOBIN 23.7 pg (28.0-32.0); MEAN PLATELET VOLUME 8.7 fl (7.4-10.4); PLATELET 232 x1000/uL (130-400); RED BLOOD CELL COUNT 5.32 mill/uL (4.7-6.1); RED CELL DISTRIBUTION WIDTH 17.6 % (11.6-14.6)
[2022-11-12] MEDS: FUROSEMIDE 40MG/4ML VIAL IVP SCH ×2 (06:35→17:18)
[2022-11-12 08:09] LABS: PLATELET ESTIMATE NORMAL
[2022-11-12] MEDS: PANTOPRAZOLE SODIUM 40 MG/VIAL IV SCH (08:57)
[2022-11-12] MEDS: CARVEDILOL 3.125 MG TABLET PO SCH ×2 (08:57→21:00)
[2022-11-12] MEDS: APIXABAN 5 MG TABLET PO SCH ×2 (08:58→17:00)
[2022-11-12] MEDS: SACUBITRIL/VALSARTAN 49MG/51MG TABLET PO SCH ×2 (08:58→17:00)
[2022-11-12] MEDS: AMIODARONE HCL 200 MG TABLET PO SCH ×2 (08:58→21:00)
[2022-11-12 09:13] LABS: BG BASE EXCESS 1.3 mmol/L (-2.0-2.0); BG CARBOXYHEMOGLOBIN 1.4 % (0.5-1.5); BG DEOXYHEMOGLOBIN 5.1 % (0.0-5.0); BG FRACTION INSPIRED OXYGEN 44; BG HCO3 ACT 24.9 mmol/L (22.0-26.0); BG METHEMOGLOBIN 0.4 % (0.0-1.5); BG OXYGEN SATURATION 94.8 % (92.0-98.5); BG OXYHEMOGLOBIN 93.1 % (94.0-97.0); BG PH 7.457 (7.350-7.450); BG PO2 70.5 mmHg (75.0-100.0); BG SAMPLE SITE RIGHT RADIAL; BG TOTAL HEMOGLOBIN 13.7 g/dL (12.0-18.0); BG VENT MODE NASAL CANNULA
[2022-11-12] MEDS ORDERED: METOLAZONE 5MG TABLET PO SCH (09:15)
[2022-11-12] MEDS ORDERED: MILRINONE 20MG-DEXT 5% PREMIX 100 ML IV PRN (13:00)
[2022-11-12] MEDS: MILRINONE 20MG-DEXT 5% PREMIX 100 ML IV PRN ×2 (13:21→23:40)
[2022-11-12] MEDS: CEFEPIME 2,000 MG in DEXT 5% WATER 100 ML IV SCH (15:26)
[2022-11-12] MEDS: AMIODARONE HCL 900 MG in DEXT 5% WATER 482 ML IV PRN (19:27)
[2022-11-13] VITALS (89 sets, daily range): BP systolic 63–174; BP diastolic 27–101
[2022-11-13] MEDS: INSULIN LISPRO 100 UNITS/ML SUBCUT SCH ×4 (00:17→18:06)
[2022-11-13] MEDS: BLOOD SUGAR DIAGNOSTIC STRIP TEST SCH ×4 (00:27→17:26)
[2022-11-13] MEDS: LORAZEPAM 2MG/ML CPJ IV PRN ×2 (01:41→10:31)
[2022-11-13] MEDS: CEFEPIME 2,000 MG in DEXT 5% WATER 100 ML IV SCH ×2 (03:00→14:36)
[2022-11-13] MEDS: ISOSORB DINIT/HYDRALAZINE HCL 20/37.5MG TABLET PO SCH ×3 (06:00→21:40)
[2022-11-13] MEDS: DILTIAZEM HCL 30MG TABLET PO SCH ×4 (06:00→17:27)
[2022-11-13] MEDS: FUROSEMIDE 40MG/4ML VIAL IVP SCH (06:21)
[2022-11-13 06:28] LABS: MEAN CORPUSCULAR HEMOGLOBIN 23.9 pg (28.0-32.0); MEAN CORPUSCULAR VOLUME 73.6 fL (80.0-94.0); PLATELET 243 x1000/uL (130-400); RED BLOOD CELL COUNT 5.03 mill/uL (4.7-6.1); RED CELL DISTRIBUTION WIDTH 17.6 % (11.6-14.6)
[2022-11-13] MEDS: CARVEDILOL 3.125 MG TABLET PO SCH ×2 (09:00→21:00)
[2022-11-13] MEDS ORDERED: FUROSEMIDE 40MG/4ML VIAL IVP SCH (09:00)
[2022-11-13] MEDS: PANTOPRAZOLE SODIUM 40 MG/VIAL IV SCH (09:17)
[2022-11-13] MEDS: APIXABAN 5 MG TABLET PO SCH ×2 (09:17→17:10)
[2022-11-13] MEDS: SACUBITRIL/VALSARTAN 49MG/51MG TABLET PO SCH ×2 (09:17→17:10)
[2022-11-13] MEDS: AMIODARONE HCL 200 MG TABLET PO SCH ×2 (09:18→22:16)
[2022-11-13 12:04] LABS: PLATELET ESTIMATE NORMAL
[2022-11-13] MEDS ORDERED: INSULIN GLARGINE 100 UNITS/ML SUBCUT SCH (13:00)
[2022-11-13] MEDS ORDERED: IPRATROPIUM BROMIDE (0.02%) 0.5MG/2.5ML NEB HHN PRN (13:15)
[2022-11-13] MEDS: IPRATROPIUM BROMIDE (0.02%) 0.5MG/2.5ML NEB HHN SCH ×3 (14:00→21:35)
[2022-11-13] MEDS: INSULIN GLARGINE 100 UNITS/ML SUBCUT SCH (22:24)
[2022-11-14] VITALS (43 sets, daily range): BP systolic 85–124; BP diastolic 39–77
[2022-11-14] MEDS: BLOOD SUGAR DIAGNOSTIC STRIP TEST SCH ×4 (00:29→16:59)
[2022-11-14] MEDS: INSULIN LISPRO 100 UNITS/ML SUBCUT SCH ×4 (00:40→17:06)
[2022-11-14] MEDS: IPRATROPIUM BROMIDE (0.02%) 0.5MG/2.5ML NEB HHN SCH ×5 (01:38→20:45)
[2022-11-14] MEDS: CEFEPIME 2,000 MG in DEXT 5% WATER 100 ML IV SCH (03:00)
[2022-11-14] MEDS: ISOSORB DINIT/HYDRALAZINE HCL 20/37.5MG TABLET PO SCH ×3 (05:10→21:47)
[2022-11-14] MEDS: DILTIAZEM HCL 30MG TABLET PO SCH ×4 (05:10→18:00)
[2022-11-14 05:47] LABS: HEMATOCRIT. 38.5 % (42.0-52.0); HEMOGLOBIN. 12.1 g/dL (14.0-18.0); MEAN CORPUSCULAR VOLUME 73.2 fL (80.0-94.0); MEAN PLATELET VOLUME 9.2 fl (7.4-10.4); PLATELET 291 x1000/uL (130-400); RED BLOOD CELL COUNT 5.25 mill/uL (4.7-6.1); RED CELL DISTRIBUTION WIDTH 17.8 % (11.6-14.6)
[2022-11-14] MEDS: AMIODARONE HCL 200 MG TABLET PO SCH ×2 (08:55→21:46)
[2022-11-14] MEDS: APIXABAN 5 MG TABLET PO SCH ×2 (08:55→17:05)
[2022-11-14] MEDS: PANTOPRAZOLE SODIUM 40 MG/VIAL IV SCH (08:55)
[2022-11-14] MEDS: CARVEDILOL 3.125 MG TABLET PO SCH ×2 (08:56→21:00)
[2022-11-14] MEDS: SACUBITRIL/VALSARTAN 49MG/51MG TABLET PO SCH ×2 (08:57→17:05)
[2022-11-14] MEDS: SODIUM CHLORIDE 0.9% 1,000 ML IV SCH (09:05)
[2022-11-14] MEDS: INSULIN GLARGINE 100 UNITS/ML SUBCUT SCH ×2 (09:05→21:49)
[2022-11-14] MEDS ORDERED: LACTULOSE 20G/30ML UDC PO PRN (11:30)
[2022-11-14 12:12] LABS: CREATINE KINASE 266 IU/L (39-308)
[2022-11-14 12:42] LABS: PLATELET ESTIMATE NORMAL
[2022-11-14] MEDS: MIDODRINE HCL 5MG TABLET PO SCH ×2 (13:42→17:05)
[2022-11-14] MEDS ORDERED: CEFEPIME 2,000 MG in DEXT 5% WATER 100 ML IV SCH (13:45)
[2022-11-15] VITALS (11 sets, daily range): BP systolic 95–130; BP diastolic 49–68
[2022-11-15] MEDS: DILTIAZEM HCL 30MG TABLET PO SCH ×4 (00:14→18:00)
[2022-11-15] MEDS: BLOOD SUGAR DIAGNOSTIC STRIP TEST SCH ×5 (00:17→20:26)
[2022-11-15] MEDS: SODIUM CHLORIDE 0.9% 1,000 ML IV SCH ×2 (00:53→20:32)
[2022-11-15] MEDS: IPRATROPIUM BROMIDE (0.02%) 0.5MG/2.5ML NEB HHN SCH ×3 (02:33→20:55)
[2022-11-15] MEDS: CEFEPIME 2,000 MG in DEXT 5% WATER 100 ML IV SCH (02:40)
[2022-11-15] MEDS: ISOSORB DINIT/HYDRALAZINE HCL 20/37.5MG TABLET PO SCH ×3 (06:00→22:07)
[2022-11-15] MEDS: INSULIN LISPRO 100 UNITS/ML SUBCUT SCH ×5 (06:00→20:26)
[2022-11-15 06:56] LABS: HEMATOCRIT. 38.2 % (42.0-52.0); HEMOGLOBIN. 12.2 g/dL (14.0-18.0); MEAN CORPUSCULAR HEMOGLOBIN 23.3 pg (28.0-32.0); MEAN CORPUSCULAR VOLUME 72.8 fL (80.0-94.0); MEAN PLATELET VOLUME 9.1 fl (7.4-10.4); PLATELET 320 x1000/uL (130-400); RED BLOOD CELL COUNT 5.25 mill/uL (4.7-6.1); RED CELL DISTRIBUTION WIDTH 17.5 % (11.6-14.6)
[2022-11-15] MEDS: CARVEDILOL 3.125 MG TABLET PO SCH ×2 (09:00→22:07)
[2022-11-15] MEDS: SACUBITRIL/VALSARTAN 49MG/51MG TABLET PO SCH ×2 (09:31→18:16)
[2022-11-15] MEDS: AMIODARONE HCL 200 MG TABLET PO SCH ×2 (09:31→22:06)
[2022-11-15] MEDS: APIXABAN 5 MG TABLET PO SCH ×2 (09:31→18:16)
[2022-11-15] MEDS: PANTOPRAZOLE SODIUM 40 MG/VIAL IV SCH (09:31)
[2022-11-15] MEDS: MIDODRINE HCL 5MG TABLET PO SCH ×3 (09:32→18:16)
[2022-11-15] MEDS: INSULIN GLARGINE 100 UNITS/ML SUBCUT SCH ×2 (09:33→23:21)
[2022-11-15 09:37] LABS: INR 1.2; PROTHROMBIN TIME 12.8 sec (9.6-11.0)
[2022-11-16] VITALS (10 sets, daily range): BP systolic 92–139; BP diastolic 51–87
[2022-11-16] MEDS: IPRATROPIUM BROMIDE (0.02%) 0.5MG/2.5ML NEB HHN SCH ×4 (01:14→21:04)
[2022-11-16] MEDS: CEFEPIME 2,000 MG in DEXT 5% WATER 100 ML IV SCH (03:05)
[2022-11-16] MEDS: DILTIAZEM HCL 30MG TABLET PO SCH ×4 (06:00→18:11)
[2022-11-16] MEDS: ISOSORB DINIT/HYDRALAZINE HCL 20/37.5MG TABLET PO SCH ×3 (06:00→21:34)
[2022-11-16 07:28] LABS: PLATELET ESTIMATE NORMAL
[2022-11-16] MEDS: INSULIN LISPRO 100 UNITS/ML SUBCUT SCH ×4 (07:30→21:29)
[2022-11-16] MEDS: BLOOD SUGAR DIAGNOSTIC STRIP TEST SCH ×4 (07:30→21:28)
[2022-11-16 08:32] LABS: EOSINOPHILS % 2.7 % (0.0-5.0); HEMATOCRIT. 34.5 % (42.0-52.0); MEAN CORPUSCULAR HEMOGLOBIN 23.5 pg (28.0-32.0); MEAN CORPUSCULAR VOLUME 73.5 fL (80.0-94.0); MEAN PLATELET VOLUME 8.8 fl (7.4-10.4); MONOCYTES % 10.5 % (2.0-8.0); NEUTROPHILS % 77.8 % (40.0-76.0); PLATELET 320 x1000/uL (130-400); RED CELL DISTRIBUTION WIDTH 17.5 % (11.6-14.6)
[2022-11-16] MEDS: CARVEDILOL 3.125 MG TABLET PO SCH ×2 (09:00→21:33)
[2022-11-16] MEDS: AMIODARONE HCL 200 MG TABLET PO SCH ×2 (09:00→21:33)
[2022-11-16] MEDS: FAMOTIDINE 20MG/2ML VIAL IV SCH (09:08)
[2022-11-16] MEDS: APIXABAN 5 MG TABLET PO SCH ×2 (09:08→18:11)
[2022-11-16] MEDS: MIDODRINE HCL 5MG TABLET PO SCH ×3 (09:09→18:10)
[2022-11-16] MEDS: SACUBITRIL/VALSARTAN 49MG/51MG TABLET PO SCH ×2 (09:09→18:11)
[2022-11-16] MEDS: SODIUM CHLORIDE 0.9% 1,000 ML IV SCH (09:11)
[2022-11-16] MEDS: INSULIN GLARGINE 100 UNITS/ML SUBCUT SCH ×2 (09:11→21:29)
[2022-11-17] VITALS: BP 109/59
[2022-11-17] MEDS: CEFEPIME 2,000 MG in DEXT 5% WATER 100 ML IV SCH (02:09)
[2022-11-17] MEDS: IPRATROPIUM BROMIDE (0.02%) 0.5MG/2.5ML NEB HHN SCH ×4 (02:54→20:00)
[2022-11-17 04:00] VITALS: BP 111/60
[2022-11-17] MEDS: ISOSORB DINIT/HYDRALAZINE HCL 20/37.5MG TABLET PO SCH (06:26)
[2022-11-17] MEDS: BLOOD SUGAR DIAGNOSTIC STRIP TEST SCH ×4 (06:27→21:00)
[2022-11-17] MEDS: DILTIAZEM HCL 30MG TABLET PO SCH ×2 (06:27)
[2022-11-17] MEDS: INSULIN LISPRO 100 UNITS/ML SUBCUT SCH ×4 (06:27→21:59)
[2022-11-17 08:00] VITALS: BP 90/44
[2022-11-17] MEDS: SACUBITRIL/VALSARTAN 49MG/51MG TABLET PO SCH ×2 (08:46→18:02)
[2022-11-17] MEDS: AMIODARONE HCL 200 MG TABLET PO SCH ×2 (08:46→22:00)
[2022-11-17] MEDS: APIXABAN 5 MG TABLET PO SCH ×2 (08:47→17:48)
[2022-11-17] MEDS: MIDODRINE HCL 5MG TABLET PO SCH ×3 (08:47→17:50)
[2022-11-17] MEDS: FAMOTIDINE 20MG/2ML VIAL IV SCH (08:47)
[2022-11-17] MEDS: CARVEDILOL 3.125 MG TABLET PO SCH ×2 (08:47→22:00)
[2022-11-17 09:06] LABS: HEMOGLOBIN. 10.6 g/dL (14.0-18.0); MEAN CORPUSCULAR HEMOGLOBIN 23.2 pg (28.0-32.0); MEAN CORPUSCULAR VOLUME 72.2 fL (80.0-94.0); MEAN PLATELET VOLUME 8.7 fl (7.4-10.4); PLATELET 374 x1000/uL (130-400); RED BLOOD CELL COUNT 4.57 mill/uL (4.7-6.1); RED CELL DISTRIBUTION WIDTH 17.2 % (11.6-14.6)
[2022-11-17] MEDS ORDERED: FUROSEMIDE 40MG/4ML VIAL IVP NR (09:45)
[2022-11-17] MEDS ORDERED: POTASSIUM CHLORIDE 20MEQ TABLET SR PO SCH (10:00)
[2022-11-17] MEDS: INSULIN GLARGINE 100 UNITS/ML SUBCUT SCH ×2 (10:28→21:59)
[2022-11-17 10:49] LABS: PLATELET ESTIMATE NORMAL
[2022-11-17 12:00] VITALS: BP 97/61
[2022-11-17 13:29] LABS: PHOSPHORUS 3.7 mg/dL (2.5-4.9)
[2022-11-17] MEDS ORDERED: AMI2 MT (14:28)
[2022-11-17 16:00] VITALS: BP 123/57
[2022-11-17 20:00] VITALS: BP 120/62
[2022-11-18] VITALS: BP 125/70
[2022-11-18] MEDS: IPRATROPIUM BROMIDE (0.02%) 0.5MG/2.5ML NEB HHN SCH (01:33)
[2022-11-18] MEDS: CEFEPIME 2,000 MG in DEXT 5% WATER 100 ML IV SCH (02:36)
[2022-11-18 04:00] VITALS: BP 115/66
[2022-11-18] MEDS: BLOOD SUGAR DIAGNOSTIC STRIP TEST SCH ×2 (05:57→12:10)
[2022-11-18] MEDS: INSULIN LISPRO 100 UNITS/ML SUBCUT SCH ×2 (05:58→12:10)
[2022-11-18 06:15] LABS: HEMOGLOBIN. 11.6 g/dL (14.0-18.0); MEAN CORPUSCULAR HEMOGLOBIN 23.8 pg (28.0-32.0); MEAN CORPUSCULAR VOLUME 72.1 fL (80.0-94.0); MEAN PLATELET VOLUME 8.6 fl (7.4-10.4); PLATELET 453 x1000/uL (130-400); RED BLOOD CELL COUNT 4.86 mill/uL (4.7-6.1); RED CELL DISTRIBUTION WIDTH 17.4 % (11.6-14.6)
[2022-11-18 08:00] VITALS: BP 105/58
[2022-11-18] MEDS: SACUBITRIL/VALSARTAN 49MG/51MG TABLET PO SCH (08:52)
[2022-11-18] MEDS: MIDODRINE HCL 5MG TABLET PO SCH (08:53)
[2022-11-18] MEDS: AMIODARONE HCL 200 MG TABLET PO SCH (08:53)
[2022-11-18] MEDS: CARVEDILOL 3.125 MG TABLET PO SCH (08:53)
[2022-11-18] MEDS: APIXABAN 5 MG TABLET PO SCH (08:53)
[2022-11-18] MEDS ORDERED: FAMOTIDINE 20MG TABLET PO SCH (09:00)
[2022-11-18] MEDS ORDERED: POTASSIUM CHLORIDE 20MEQ TABLET SR PO SCH (09:30)
[2022-11-18] MEDS ORDERED: FUROSEMIDE 40MG TABLET PO SCH (09:30)
[2022-11-18] MEDS: INSULIN GLARGINE 100 UNITS/ML SUBCUT SCH (09:58)
[2022-11-18 11:38] VITALS: BP 105/58
[2022-11-18 12:00] VITALS: BP 110/58
[2022-11-18 16:12] LABS: PLATELET ESTIMATE INCREASED
== END 2022-11-18 13:00 | disposition home health service (06) | DRG 179 ==
LOC: ER 09:43 → 7WST 12:37 → EDBEDREQSVC 12:51 → EDBEDREQTM 12:51 → EDBEDREQ 12:51 → EDBEDREQSVC 16:24 → ER 20:18 → CVICU 11-07 15:44 → 5EST 11-15 00:32 → 8WST 11-16 15:40
PROVIDERS: ADMIT Internal Medicine; ATTEND Internal Medicine
PROC: 5A1945Z Respiratory Ventilation, 24-96 Consecutive Hours (ICD-10-PCS; principal; 2022-11-07)
PROC: 0JH608Z Insertion of Defibrillator Generator into Chest Subcutaneous Tissue and Fascia, Open Approach (ICD-10-PCS; 2022-11-07)
PROC: 0BH17EZ Insertion of Endotracheal Airway into Trachea, Via Natural or Artificial Opening (ICD-10-PCS; 2022-11-07)
PROC: 02HK0KZ Insertion of Defibrillator Lead into Right Ventricle, Open Approach (ICD-10-PCS; 2022-11-07)
PROC: 5A2204Z Restoration of Cardiac Rhythm, Single (ICD-10-PCS; 2022-11-07)
PROC: 02HV33Z Insertion of Infusion Device into Superior Vena Cava, Percutaneous Approach (ICD-10-PCS; 2022-11-08)
PROC: 05H533Z Insertion of Infusion Device into Right Subclavian Vein, Percutaneous Approach (ICD-10-PCS; 2022-11-09)
PROC: 5A1D70Z Performance of Urinary Filtration, Intermittent, Less than 6 Hours Per Day (ICD-10-PCS; 2022-11-09)
PROC: 5A1D70Z Performance of Urinary Filtration, Intermittent, Less than 6 Hours Per Day (ICD-10-PCS; 2022-11-10)
PROC: 5A09357 Assistance with Respiratory Ventilation, Less than 24 Consecutive Hours, Continuous Positive Airway Pressure (ICD-10-PCS; 2022-11-11)
PROC: 5A09357 Assistance with Respiratory Ventilation, Less than 24 Consecutive Hours, Continuous Positive Airway Pressure (ICD-10-PCS; 2022-11-12)
DX: I13.0 Hypertensive heart and chronic kidney disease with heart failure and stage 1 through stage 4 chronic kidney disease, or unspecified chronic kidney disease (principal); J96.01 Acute respiratory failure with hypoxia; N17.0 Acute kidney failure with tubular necrosis; G93.40 Encephalopathy, unspecified; J15.1 Pneumonia due to Pseudomonas; I47.1 Supraventricular tachycardia; I48.3 Typical atrial flutter; J81.1 Chronic pulmonary edema; D63.1 Anemia in chronic kidney disease; I27.29 Other secondary pulmonary hypertension; I48.0 Paroxysmal atrial fibrillation; I50.23 Acute on chronic systolic (congestive) heart failure; E11.22 Type 2 diabetes mellitus with diabetic chronic kidney disease; Z20.822 Contact with and (suspected) exposure to COVID-19; I82.511 Chronic embolism and thrombosis of right femoral vein; I82.531 Chronic embolism and thrombosis of right popliteal vein; E66.9 Obesity, unspecified; I25.10 Atherosclerotic heart disease of native coronary artery without angina pectoris; I25.5 Ischemic cardiomyopathy; E78.5 Hyperlipidemia, unspecified; N18.9 Chronic kidney disease, unspecified; E78.00 Pure hypercholesterolemia, unspecified; I44.0 Atrioventricular block, first degree; I95.9 Hypotension, unspecified; I69.30 Unspecified sequelae of cerebral infarction; I25.2 Old myocardial infarction; Z79.01 Long term (current) use of anticoagulants; Z79.4 Long term (current) use of insulin
CPT/HCPCS: 33249; 36415; 36556; 36573; 36600; 71045; 75572; 75820; 76770; 76937; 80048; 80053; 81003; 82140; 82375; 82550; 82575; 82607; 82805; 82962; 83735; 83880; 84100; 84145; 84439; 84443; 84478; 84484; 85025; 86705; 86709; 86803; 87070; 87077; 87186; 87340; 87426; 90935; 92610; 92960; 93005; 93306; 93451; 93641; 93970; 94002; 94003; 94640; 94660; 97162; 97165; 97530; 99285; A4565; C1722; C1725; C1752; C1893; C1899; C9113; J0282; J0692; J0696; J1580; J1644; J1650; J1815; J1940; J2060; J2250; J2260; J2310; J2704; J3010; J3370; J3490; J7030; J7050; J7060; Q9957; Q9967; A4315

== ENCOUNTER 2023-01-14 09:54 | Emergency (ER) | payer OTHER ==
[~2023-01-14] VITALS: Ht 180.3 cm; Wt 118.0 kg
[~2023-01-14 09:54] MED LIST changes: +AMI2 MT; -DILT240C91 MT
[2023-01-14 10:04] VITALS: BP 150/88
[2023-01-14 10:58] LABS: BASOPHILS % 1.3 % (0.0-2.0); EOSINOPHILS % 2.9 % (0.0-5.0); HEMATOCRIT. 40.2 % (42.0-52.0); HEMOGLOBIN. 12.7 g/dL (14.0-18.0); LYMPHOCYTES % 10.3 % (20.0-50.0); MEAN CORPUSCULAR HEMOGLOBIN 24.5 pg (28.0-32.0); MEAN CORPUSCULAR VOLUME 77.4 fL (80.0-94.0); MEAN PLATELET VOLUME 8.2 fl (7.4-10.4); MONOCYTES % 5.7 % (2.0-8.0); NEUTROPHILS % 79.8 % (40.0-76.0); PLATELET 254 x1000/uL (130-400); RED CELL DISTRIBUTION WIDTH 21.6 % (11.6-14.6)
[2023-01-14 11:10] LABS: CHLORIDE 110 mEq/L (98-107)
[2023-01-14 11:16] LABS: INR 1.3; PARTIAL THROMBOPLASTIN TIME 38.8 sec (23.4-31.0)
== END 2023-01-14 11:59 | disposition home or self-care (01) ==
LOC: ER 09:54
DX: I82.401 Acute embolism and thrombosis of unspecified deep veins of right lower extremity (principal); I11.0 Hypertensive heart disease with heart failure; I50.9 Heart failure, unspecified; E78.00 Pure hypercholesterolemia, unspecified; E11.9 Type 2 diabetes mellitus without complications; Z53.21 Procedure and treatment not carried out due to patient leaving prior to being seen by health care provider; Z86.73 Personal history of transient ischemic attack (TIA), and cerebral infarction without residual deficits
CPT/HCPCS: 36415; 71045; 80053; 83880; 84484; 85025; 93971; 99285